=== PATIENT | male | born 1980 | race Caucasian/White ===

== ENCOUNTER 2025-02-02 14:47 | Outpatient (CLI) | payer OTHER, SELFPAY ==
--- NOTE | 2025-02-02 14:58 | US_ITS ---
WS: [id number] TESTICULAR ULTRASOUND HISTORY: L TESTICULAR PAIN COMPARISON: None available. TECHNIQUE: Real-time and color Doppler imaging utilized to perform a testicular ultrasound. Right testicle: 3.8 cm x 2.9 cm x 2.7 cm. Normal size and echogenicity. No mass or torsion. Normal color Doppler is present throughout. Systolic and diastolic velocities are both present. Mildly complex RIGHT hydrocele. Small hydrocele. Right epididymis: Normal epididymis with no increased vascularity. Left testicle: 4.0 cm x 3.1 cm x 2.6 cm. Normal size and echogenicity. No mass or torsion. Normal color Doppler is present throughout. Systolic and diastolic velocities are both present. Small slightly complex hydrocele. Left epididymis: Normal epididymis with no increased vascularity. Prominent LEFT pampiniform plexus but no varicocele at this time. US/US scrotum [id number] IMPRESSION: 1. No testicular mass or torsion. 2. Small bilateral, mildly complex hydroceles.
== END 2025-02-02 14:48 | disposition home or self-care (01) ==
PROVIDERS: PCP Family Medicine; Visit Provider Family Medicine
DX: N50.812 Left testicular pain (principal); N43.3 Hydrocele, unspecified; R93.89 Abnormal findings on diagnostic imaging of other specified body structures
CPT/HCPCS: 76870